=== PATIENT | female | born 1985 | race Caucasian/White ===

== ENCOUNTER 2017-06-19 14:56 | Inpatient (IN) | payer OTHER ==
[~2017-06-19] VITALS: Ht 160.1 cm; Wt 71.4 kg
[2017-08-18] VITALS (16 sets, daily range): BP systolic 102–137; BP diastolic 60–85; PULSE 65–89; TEMP 97.4–97.8
[2017-08-18 06:15] LABS: BASO % 0.4 % (0.0-2.0); EOS % 0.6 % (0-4.0); GRAN # 4.9 (1.4-6.5); GRAN % 70.7 % (42.2-75.2); LYMPH # 1.5 (1.2-3.4); LYMPH % 21.3 % (20.0-51.0); MEAN CELL VOLUME 84 fl (80.0-100.0); MEAN CORPUSCULAR HGB CONC 34 g/dl (33.0-37.0); MEAN PLATELET VOLUME 10.9 fl (7.4-10.4); MONO # 0.4 (0.1-0.6); MONO % 6.3 % (1.7-9.3); PLATELET COUNT 184 K/mm3 (130-400); RED BLOOD COUNT 3.98 M/mm3 (4.10-5.30); REDCELL DISTRIBUTION WIDTH-CV 13.2 % (11.5-14.5)
[2017-08-18 06:23] LABS: HEMATOCRIT 33.4 % (37.0-47.0); HEMOGLOBIN 11.3 g/dl (12.5-16.0); MEAN CORPUSCULAR HEMOGLOBIN 28 pg (27.0-31.0)
[2017-08-18] MEDS ORDERED: PRENATAL1 TA7 PO (06:55)
[2017-08-18] MEDS ORDERED: ZANTAC 150MG T150 MG PO (06:55)
[2017-08-19 00:10] VITALS: BP 132/88; PULSE 81; TEMP 97.7
[2017-08-19 02:30] VITALS: BP 112/76; PULSE 72; TEMP 97.4
[2017-08-19 06:12] LABS: BASO % 0.1 % (0.0-2.0); EOS % 0.5 % (0-4.0); GRAN # 6.5 (1.4-6.5); GRAN % 78.9 % (42.2-75.2); LYMPH # 1.1 (1.2-3.4); LYMPH % 13.6 % (20.0-51.0); MEAN CELL VOLUME 87 fl (80.0-100.0); MEAN CORPUSCULAR HGB CONC 33 g/dl (33.0-37.0); MEAN PLATELET VOLUME 10.7 fl (7.4-10.4); MONO # 0.5 (0.1-0.6); MONO % 6.4 % (1.7-9.3); PLATELET COUNT 149 K/mm3 (130-400); RED BLOOD COUNT 3.05 M/mm3 (4.10-5.30); REDCELL DISTRIBUTION WIDTH-CV 13.2 % (11.5-14.5)
[2017-08-19 06:14] LABS: HEMATOCRIT 26.5 % (37.0-47.0); HEMOGLOBIN 8.7 g/dl (12.5-16.0); MEAN CORPUSCULAR HEMOGLOBIN 29 pg (27.0-31.0)
[2017-08-19 09:00] VITALS: BP 116/73; PULSE 97; TEMP 97.7
[2017-08-19] MEDS ORDERED: PERCOCET 325 MG1 TA2 PO (12:59)
[2017-08-19] MEDS ORDERED: IBU600 MG PO (12:59)
[2017-08-19 17:52] VITALS: BP 126/83; PULSE 89; TEMP 98.2
[2017-08-19 23:25] VITALS: BP 112/75; PULSE 88; TEMP 98.6
[2017-08-20 07:30] VITALS: BP 114/77; PULSE 82; TEMP 98.3
== END 2017-08-20 11:50 | disposition home or self-care (01) | DRG 765 ==
LOC: OB 08-18 05:03 → LDR 08-18 14:56 → OB 08-20 11:50
PROVIDERS: Obstetrics & Gynecology
PROC: 10D00Z1 Extraction of Products of Conception, Low, Open Approach (ICD-10-PCS; principal; 2017-08-18)
DX: O34.211 Maternal care for low transverse scar from previous cesarean delivery (principal); D62 Acute posthemorrhagic anemia; N85.8 Other specified noninflammatory disorders of uterus; O99.02 Anemia complicating childbirth; Z3A.39 39 weeks gestation of pregnancy; Z37.0 Single live birth; Z87.891 Personal history of nicotine dependence
CPT/HCPCS: J0171; J0690; J1885; J2175; J2270; J2370; J2405; J2590; J2765; J7120